=== PATIENT | male | born 1980 | race African-American/Black ===

== ENCOUNTER 2021-07-28 22:01 | Emergency (ER) | payer SELFPAY | END 2021-07-28 22:55 | LOC: NAV ERS 22:01 | DX: S10.91XA Abrasion of unspecified part of neck, initial encounter (principal); S20.412A Abrasion of left back wall of thorax, initial encounter; S80.812A Abrasion, left lower leg, initial encounter; S80.811A Abrasion, right lower leg, initial encounter; F17.210 Nicotine dependence, cigarettes, uncomplicated; X58.XXXA Exposure to other specified factors, initial encounter | CPT/HCPCS: 99283 ==